=== PATIENT | male | born 1965 | race Caucasian/White ===

== ENCOUNTER 2023-06-18 15:52 | Emergency (ER) | payer OTHER ==
[~2023-06-18] VITALS: Ht 165.1 cm; Wt 79.4 kg
[2023-06-18 16:50] VITALS: BP 154/76; TEMP 98.2
[2023-06-18] MEDS ORDERED: CLIN300C12 PO (17:08)
[2023-06-18 18:45] VITALS: O2SAT 97
== END 2023-06-18 18:46 | disposition home or self-care (01) ==
LOC: ER 15:52
DX: L02.414 Cutaneous abscess of left upper limb (principal); L03.114 Cellulitis of left upper limb; F17.200 Nicotine dependence, unspecified, uncomplicated; Z79.899 Other long term (current) drug therapy; Z60.2 Problems related to living alone
CPT/HCPCS: 99283; 10060; A6403; A6407 ×2

== ENCOUNTER 2023-07-05 21:35 | Inpatient (IN) | payer OTHER ==
[~2023-07-05] VITALS: Ht 165.1 cm; Wt 79.9 kg
[~2023-07-05 21:35] MED LIST: CLIN300C12 PO
[2023-07-05] MEDS ORDERED: CLINDAMYCIN 900 MG/6 ML VIAL ONE (22:53)
[2023-07-05] MEDS: CLINDAMYCIN 600 MG in IV D5W 100 ML IV ONE (23:06)
[2023-07-05 23:18] LABS: BASOPHILS # (AUTO) 0.1 K/uL (0.0-0.2); BASOPHILS % (AUTO) 0.4 % (0.0-2.0); EOSINOPHILS # (AUTO) 0.3 K/uL (0.0-0.7); EOSINOPHILS % (AUTO) 2.2 % (0.0-6.0); HEMATOCRIT 44 % (39-51); LYMPHOCYTES # (AUTO) 2.5 K/uL (0.8-4.8); LYMPHOCYTES % (AUTO) 19.4 % (20.0-44.0); MEAN CORPUSCULAR HEMOGLOBIN 30 PG (26.0-33.0); MEAN CORPUSCULAR HGB CONC 34 g/dl (31.0-36.0); MEAN CORPUSCULAR VOLUME 88 fL (80-96); MONOCYTES # (AUTO) 0.6 K/uL (0.1-1.30); MONOCYTES % (AUTO) 4.9 % (2.0-12.0); NEUTROPHILS # (AUTO) 9.4 K/uL (1.8-8.9); NEUTROPHILS % (AUTO) 73.1 % (43.0-81.0); PLATELET COUNT (AUTO) 216 K/uL (150-450); RED BLOOD CELL COUNT(AUTO) 5.02 MIL/uL (4.5-6.0); RED CELL DISTRIBUTION WIDTH 13.4 % (11.5-15.0); WHITE BLOOD COUNT (AUTO) 12.9 K/uL (4.3-11.0)
[2023-07-05 23:23] LABS: APPEARANCE,URINE CLEAR (CLEAR); BILIRUBIN,URINE NEGATIVE (NEGATIVE); BLOOD, URINE NEGATIVE Ery/uL (NEGATIVE); COLOR,URINE DARK YELLOW (YELLOW); KETONES,URINE NEGATIVE (NEGATIVE); LEUKOCYTE ESTERASE ,URINE NEGATIVE (NEGATIVE); NITRITE, URINE NEGATIVE (NEGATIVE); PROTEIN,URINE NEGATIVE (NEGATIVE); UGLUCOSE NEGATIVE (NEGATIVE)
[2023-07-05 23:36] LABS: ALBUMIN 3.8 g/dL (3.4-5.0); BILIRUBIN,TOTAL 0.9 mg/dL (0.2-1.0); CALCIUM, SERUM 9.7 mg/dL (8.5-10.1); POTASSIUM 4.1 mmol/L (3.5-5.1); TOTAL PROTEIN, SERUM 7.9 g/dL (6.4-8.2)
[2023-07-05 23:41] LABS: BARBITURATE, URINE NEGATIVE (NEGATIVE); BENZODIAZEPINE, URINE NEGATIVE (NEGATIVE); CANNABINOID, URINE NEGATIVE (NEGATIVE); COCCAINE, URINE NEGATIVE (NEGATIVE); OPIATE, URINE NEGATIVE (NEGATIVE); PHENCYCLIDINE SCREEN,URINE NEGATIVE (NEGATIVE)
[2023-07-05 23:44] LABS: AMPHETAMINE, URINE POSITIVE (NEGATIVE)
[2023-07-05 23:49] LABS: LACTIC ACID 0.7 mmol/L (0.4-2.0)
[2023-07-06] MEDS ORDERED: MAGNESIUM HYDROXIDE 30 ML UDC PO PRN (01:00)
[2023-07-06] MEDS ORDERED: ZOLPIDEM TARTRATE 5 MG TABLET PO PRN (01:00)
[2023-07-06] MEDS ORDERED: ACETAMINOPHEN 325 MG TABLET PO PRN (01:00)
[2023-07-06] MEDS ORDERED: ONDANSETRON HCL/PF 4 MG/2 ML VIAL IVP PRN (01:00)
[2023-07-06] MEDS ORDERED: HYDROCODONE/APAP 10/325MG TABLET PO PRN (01:00)
[2023-07-06] MEDS ORDERED: MAG HYDROX/AL HYDROX/SIMETH 30 ML UDC PO PRN (01:00)
[2023-07-06] MEDS ORDERED: Z GUARD REMEDY 4 OZ OINT TP PRN (01:00)
[2023-07-06 01:55] VITALS: O2SAT 98
[2023-07-06] MEDS: IV NS 0.9% 1,000 ML IV PRN (05:41)
[2023-07-06] MEDS ORDERED: CLINDAMYCIN 900 MG/6 ML VIAL ONE (06:26)
[2023-07-06] MEDS: CLINDAMYCIN IV RTU IN D5W 900 MG/50 ML PIGGYBACK IV SCH (06:33)
[2023-07-06 08:00] VITALS: BP 121/79; TEMP 98.7; O2SAT 98
[2023-07-06] MEDS: CLINDAMYCIN 900 MG in IV D5W 50 ML IV SCH (12:20)
[2023-07-06] MEDS: MUPIROCIN OINT 2% 22 GM TUBE TP SCH (14:27)
[2023-07-06] MEDS ORDERED: IOHEXOL-300 100 ML VIAL IV ONE (14:37)
[2023-07-06] MEDS ORDERED: IV NS 0.9% 250 ML IV ONE (14:38)
[2023-07-06 16:00] VITALS: BP 139/92; TEMP 98.4; O2SAT 98
[2023-07-06] MEDS: CEFEPIME 2 GM in IV D5W 100 ML IV SCH (20:00)
[2023-07-06] MEDS: VANCOMYCIN 1 GM in IV D5W 250 ML IV SCH (21:00)
== END 2023-07-07 | disposition left against medical advice (07) | DRG 720 ==
LOC: ER 21:44 → MED 07-06 04:26
PROVIDERS: ADMIT Student in an Organized Health Care Education/Training Program; ATTEND Student in an Organized Health Care Education/Training Program
DX: A41.9 Sepsis, unspecified organism (principal); F15.90 Other stimulant use, unspecified, uncomplicated; L02.01 Cutaneous abscess of face; L03.114 Cellulitis of left upper limb; L03.211 Cellulitis of face; L02.414 Cutaneous abscess of left upper limb; Z98.890 Other specified postprocedural states; F17.200 Nicotine dependence, unspecified, uncomplicated
CPT/HCPCS: 36415; 70487-TC; 73090-TC; 80053-TC; 83605-TC; 85025-TC; 87040-TC; A4223; G0378; J0692; J3370; J3490; J7030; J7050; J7060; Q9967